=== PATIENT | male | born 1975 | race Asian ===

== ENCOUNTER → 2024-05-02 | Outpatient (CLI) | payer BC, SELFPAY ==
[2024-05-02 09:12] LABS: Glucose Estimated Average 120 mg/dL (80-131); Hemoglobin A1C 5.8 % Hgb (4.8-6.0)
[2024-05-02 09:34] LABS: Alanine Aminotransferase 52 U/L (10-49); Albumin, Serum 4.8 gm/dL (3.5-5.0); Albumin/Globulin Ratio 1.7 (1.2-2.2); Alkaline Phosphatase 64 U/L (46-116); Anion Gap 8 (7-16); Aspartate Amino Transferase 31 U/L (0-34); BUN/Creatinine Ratio 12 Ratio (12-20); Bilirubin,Total 0.9 mg/dL (0.3-1.2); Blood Urea Nitrogen 13 mg/dL (9-23); Calcium 9.8 mg/dL (8.3-10.6); Calcium (Corrected) 9.8 mg/dL (8.5-10.1); Carbon Dioxide 29.4 mMol/L (20.0-31.0); Cardiac Risk Estimate 2.8 RATIO (4.0-6.7); Chloride 101 mMol/L (98-107); Cholesterol 158 mg/dL (132-200); Creatinine (Component) 1.1 mg/dL (0.6-1.3); Globulin 2.8 gm/dL (2.3-3.5); Glucose 98 mg/dL (74-106); HDL Cholesterol 56 mg/dL (40-60); LDL Cholesterol,Calculated 85 mg/dL (0-130); Osmolality,Calculated 275 (275-295); Potassium 4.5 mMol/L (3.4-5.1); Sodium 138 mMol/L (136-145); Total Protein 7.6 gm/dL (5.7-8.2); Triglycerides 87 mg/dL (30-150); eGFR > 60 See Note
== END | disposition home or self-care (01) ==
LOC: COPL 07:44
PROVIDERS: PCP Internal Medicine; Referring Provider Internal Medicine; Visit Provider Internal Medicine
DX: E78.5 Hyperlipidemia, unspecified (principal); R73.03 Prediabetes
CPT/HCPCS: 36415; 80053; 80061; 83036

== ENCOUNTER 2024-08-06 08:14 | Emergency (ER) | payer BC, SELFPAY ==
[2024-08-06 08:23] VITALS: BP 153/91; PULSE 70; RESP 16; TEMP 36.8; O2SAT 96; BMI 28.7
--- NOTE | 2024-08-06 08:23 | EKG_ITS ---
[facility] Test Date: 2024-08-06 Pat Name: JERRY TOLENTINO Department: Room: - Gender: Male Paver: : 1975 Requested By: Adam Wood (MIN) Order Number: [id number] Reading MD: Adam Wood (LIGHT RAIL TRAIN OPERATOR) Measurements Intervals [place] Rate: 80 P: 63 DC: 166 QRS: 56 QRSD: 106 T: 38 QT: 364 QTc: 422 Interpretive Statements SINUS RHYTHM NONSPECIFIC T-WAVE ABNORMALITY Compared to ECG 08/03/2022 09:39:12 T-wave abnormality now present /store/S0/[id number].pdf
--- NOTE | 2024-08-06 08:25 | PD.EDRME ---
Rapid Medical Screening Exam RME Arrival date/time: 08/06/24 08:14 48-year-old male presents to the emergency department complaints of dizziness and headache Chief Complaint: Dizziness Vital signs: Vital Signs Temperature 98.2 F 08/06/24 08:23 Pulse Rate 70 08/06/24 08:23 Respiratory Rate 16 08/06/24 08:23 Blood Pressure 153/91 H 08/06/24 08:23 Pulse Oximetry (%) 96 08/06/24 08:23 Oxygen Delivery Method Room Air 08/06/24 08:23
[2024-08-06] MEDS: MECLIZINE HCL 25 MG TABLET 50 MG PO ×2 (08:36→14:18)
[2024-08-06] MEDS: METOCLOPRAMIDE INJ 5 MG/ML VIAL 2 ML 10 MG IM (08:43)
[2024-08-06 09:21] LABS: Basophils % (Auto) 0 % (0-2.5); Eosinophils % (Auto) 0 % (0-10); Hemoglobin 15.6 g/dL (13.5-16.0); Immature Granulocytes % (Auto) 0 % (0-0); Immature Granulocytes Auto 0.03 Thou/mm3 (0.00-0.00); Lymphocytes # (Auto) 1.9 Thou/mm3 (1.0-4.8); Lymphocytes % (Auto) 17 % (10-50); Mean Corpuscular HGB Conc 33.9 g/dl (31.0-37.0); Mean Corpuscular Hemoglobin 30.4 pg (25.0-35.0); Mean Corpuscular Volume 90 fL (80-100); Monocytes # (Auto) 0.9 Thou/mm3 (0.0-0.8); Monocytes % (Auto) 8 % (0-12); Neutrophils # (Auto) 8.2 Thou/mm3 (1.8-7.7); Neutrophils % (Auto) 74 % (37-80); Nucleated Red Blood Cell % 0 /100 WBC (0); Platelet Count 297 Thou/mm3 (140-440); RDW Standard Deviation 40.2 fL (35.1-43.9); Red Blood Count 5.14 Miln/mm3 (4.50-5.90)
[2024-08-06 09:27] LABS: Partial Thromboplastin Time 25.7 Seconds (22.0-36.0); Prothrombin Time 11.1 Seconds (9.0-12.2)
[2024-08-06 09:32] LABS: Alanine Aminotransferase 39 U/L (10-49); Albumin, Serum 4.9 gm/dL (3.5-5.0); Albumin/Globulin Ratio 1.5 (1.2-2.2); Alkaline Phosphatase 68 U/L (46-116); Anion Gap 9 (7-16); Aspartate Amino Transferase 16 U/L (0-34); BUN/Creatinine Ratio 16 Ratio (12-20); Bilirubin,Total 1.1 mg/dL (0.3-1.2); Blood Urea Nitrogen 19 mg/dL (9-23); Calcium 9.8 mg/dL (8.3-10.6); Calcium (Corrected) 9.8 mg/dL (8.5-10.1); Carbon Dioxide 28.2 mMol/L (20.0-31.0); Chloride 103 mMol/L (98-107); Creatinine (Component) 1.2 mg/dL (0.6-1.3); Estimated Creatinine Clearance 68.6 mL/min (>60); Globulin 3.3 gm/dL (2.3-3.5); Glucose 134 mg/dL (74-106); Magnesium 2.3 mg/dL (1.6-2.6); Osmolality,Calculated 283 (275-295); Potassium 3.9 mMol/L (3.4-5.1); Sodium 140 mMol/L (136-145); Total Protein 8.2 gm/dL (5.7-8.2); Troponin I < 0.020 ng/mL (0.0-0.045); eGFR > 60 See Note
[2024-08-06 09:43] LABS: Collection Type, Urine Clean Catch; Squamous Epithelial Cell,Urine 0 /hpf (0-5)
--- NOTE | 2024-08-06 09:44 | XR_ITS ---
EXAMINATION: CT head/brain wo con ORDERING PROVIDER: Adam STALLINGS), FORM SETTER HELPER HISTORY: dizziness TECHNIQUE: CT scanner was used in the volumetric, helical non-contrast acquisition of the head with 2-D and 3-D reformats. Institutional dose reducing protocols were utilized. RADIATION DOSE: DLP 1005.25 mGy-cm COMPARISON: None. FINDINGS: BRAIN: No acute intracranial hemorrhage, mass effect, or midline shift. Partially empty sella. VELÁSQUEZ-WHITE DIFFERENTIATION: Preserved. EXTRA-AXIAL SPACES: No abnormal collection. SULCI: Normal. VENTRICLES: Normal. BASAL CISTERNS: Normal. VESSELS: No hyperdense vessel sign. DURAL VENOUS SINUSES: Symmetric attenuation. POSTERIOR FOSSA: Normal. MASTOID AIR CELLS: Clear. PARANASAL SINUSES: Clear. Left supraorbital air cell. ORBITS: Normal. BONES: Normal. SCALP: Normal. IMPRESSION: No acute intracranial findings.
[2024-08-06 09:48] LABS: Bilirubin,Urine Negative (Negative); Blood,Urine Negative (Negative); Clarity,Urine Clear (Clear/Hazy); Color,Urine Yellow (Lt Yel-Yel); Glucose, Urine Negative (Negative); Hyaline Casts,Urine < 1 /hpf (0-1); Ketones,Urine Negative (Negative); Leukocyte Esterase,Urine Negative (Negative); Nitrite,Urine Negative (Negative); Protein,Urine 1+ (Neg - Trace); RBC,Urine 1 /hpf (0-3); Specific Gravity,Urine 1.035 (1.001-1.035); Urobilinogen,Urine Negative mg/dL (0.0-1.0); WBC,Urine 1 /hpf (0-5)
[2024-08-06 09:57] LABS: Amphetamine/Methamp Scrn,U Negative (Negative); Barbiturate Screen,Urine Negative (Negative); Benzodiazepines Screen,Urine Negative (Negative); Benzoylecgonine Screen, Ur Negative (Negative); Fentanyl Screen,Urine Negative (Negative); Opiate Screen,Urine Negative (Negative); THC Screen,Urine Negative (Negative)
[2024-08-06 09:58] LABS: B-Type Natriuretic Peptide < 20 pg/mL (0-100)
[2024-08-06 11:15] VITALS: BP 118/77; PULSE 71; RESP 16; TEMP 36.8; O2SAT 98
[2024-08-06 13:29] VITALS: BP 135/75; PULSE 74; RESP 16; TEMP 36.7; O2SAT 98
--- NOTE | 2024-08-06 13:54 | EDNOTE_ITS ---
ED Dizzyness RME/HPI General Chief Complaint: Dizziness Stated Complaint: ROOM SPINNING DOUBLE VISION; VOMITING X YESTERDAY Time Seen by Provider: 08/06/24 13:52 Arrival date/time: 08/06/24 08:14 This is a 48-year-old male that comes to the emergency room with complaints of dizziness that started yesterday. Patient states that he feels like the world is spinning. Patient reports history of hyperlipidemia. Patient denies any other symptoms. RME / HPI RME / HPI Narrative: 08/06/24 08:14 48-year-old male presents to the emergency department complaints of dizziness and headache Related Data Home Medications ?Medication ?Instructions ?Recorded ?Confirmed atorvastatin 20 mg tablet 20 mg PO QDAY 02/17/2402/16 Previous Rx's ?Medication ?Instructions ?Recorded meclizine 50 mg tablet 50 mg PO BID PRN dizziness # 14 tabs 08/06/24 ondansetron 4 mg disintegrating 4 mg PO Q6H PRN nausea and 08/06/24 tablet vomiting #14 tabs Allergies Allergy/AdvReac Type Severity Reaction Status Date / Time No Known Allergies Allergy Verified 08/06/24 08:17 Review of Systems Review of Systems Systems Reviewed: All systems reviewed, normal except as documented Past Medical History Past Medical History Comments PMH COMMENT: see hpi ED Exam General General appearance: Present alert and in no apparent distress Head Head exam: Present atraumatic Eye Eye exam: Present normal appearance, PERRL and EOMI ENT ENT exam: Present normal exam, normal oropharynx and mucous membranes moist Neck Neck exam: Present normal inspection, full ROM and trachea midline Chest Chest inspection: Present normal inspection and symmetric chest wall rise Respiratory Respiratory exam: Present normal lung sounds bilaterally Cardiovascular Cardiovascular exam: Present regular rate and normal rhythm Abdominal Exam Abdominal exam: Present soft Extremities Exam Extremities exam: Present normal inspection and full ROM Back Exam Back exam: Present normal inspection and full ROM Neurological Exam Neurological exam: Present alert, oriented X3 and CN II-XII intact Psychiatric Psychiatric exam: Present normal affect and normal mood Skin Skin exam: Present warm, dry, intact and normal color Course Quality Measures none Orders Category Date Time Status EKG (ED ONLY) *Do not use* NOW Care 08/06/24 08:[address] head/brain wo con Stat Exams 08/06/24 09:44 Completed EKG (ED Only) Stat Exams 08/06/24 08:23 Draft B-Type Natriuretic Peptide Stat Lab 08/06/24 08:35 Completed CBC Stat Lab 08/06/24 08:35 Completed Comprehensive Metabolic Panel Stat Lab 08/06/24 08:35 Completed Drug Screen,Urine Stat Lab 08/06/24 09:00 Completed Magnesium Stat Lab 08/06/24 08:35 Completed Partial Thromboplastin Time Stat Lab 08/06/24 08:35 Completed Prothrombin Time with INR Stat Lab 08/06/24 08:35 Completed Troponin I Stat Lab 08/06/24 08:35 Completed Urinalysis Stat Lab 08/06/24 09:00 Completed Meclizine HCl [Antivert] Med 08/06/24 08:22 Discontinued 50 mg PO X1 ONE Meclizine HCl [Antivert] Med 08/06/24 14:05 Discontinued 50 mg PO X1 ONE Metoclopramide Inj [Reglan Inj] Med 08/06/24 08:45 Discontinued 10 mg IM X1 ONE Vital Signs Vital signs: Vital Signs Temperature 98.2 F 08/06/24 08:23 Pulse Rate 70 08/06/24 08:23 Respiratory Rate 16 08/06/24 08:23 Blood Pressure 153/91 H 08/06/24 08:23 Pulse Oximetry (%) 96 08/06/24 08:23 Oxygen Delivery Method Room Air 08/06/24 08:23 Procedures -ED EKG Interpretation #1: Date of EK08/06/24 Time of EK:27 Rate: 80 Interpretation: Interpreted by me (sinus rhythm no specificc t wave abnormality ) EKG Impression: No ectopy, Normal QRS and Normal intervals Dizziness MDM Narrative MDM Narrative:: FINDINGS: BRAIN: No acute intracranial hemorrhage, mass effect, or midline shift. Partially empty sella. VELÁSQUEZ-WHITE DIFFERENTIATION: Preserved. EXTRA-AXIAL SPACES: No abnormal collection. SULCI: Normal. VENTRICLES: Normal. BASAL CISTERNS: Normal. VESSELS: No hyperdense vessel sign. DURAL VENOUS SINUSES: Symmetric attenuation. POSTERIOR FOSSA: Normal. MASTOID AIR CELLS: Clear. PARANASAL SINUSES: Clear. Left supraorbital air cell. ORBITS: Normal. BONES: Normal. SCALP: Normal. IMPRESSION: No acute intracranial findings. Patient has had this problem before. Patient was given a dose of Reglan and also meclizine. Patient does feel better. Urine looks unremarkable U tox urine looks unremarkable. Patient feels comfortable going home at this time. Patient states most of his symptoms have resolved. Will send patient home with mecaretha and Maralfran. Patient reports that he will follow-up with primary provider in 1 to 2 days. Come back to the emergency room if symptoms change or worsen. Patient data External records reviewed:: [facility] previous records Clinical information provided by:: patient Social determinants that could affect healthcare access:: none Patient has the following chronic illnesses:: hyperlipidemia How is presenting disease/condition affected by chronic disease/condition?: no chronic disease Evaluation data The following diagnostics were reviewed and interpreted by me:: lab results, radiology exam(s) and EKG tracing(s) Lab and/or radiology exams considered but not ordered:: none Interpretation Summary: see note Medications / Prescriptions Medications or Prescriptions considered but not ordered:: none Medication administrations:: Medication Administration History Discontinued Medications Meclizine HCl (Meclizine Hcl 25 Mg Tablet) 50 mg PO X1 ONE Stop: 08/06/24 08:23 Last Admin: 08/06/24 08:36 Dose: 50 mg Documented By: ANA Meclizine HCl (Meclizine Hcl 25 Mg Tablet) 50 mg PO X1 ONE Stop: 08/06/24 14:06 Last Admin: 08/06/24 14:18 Dose: 50 mg Documented By: PRISCILA Metoclopramide HCl (Metoclopramide Inj 5 Mg/Ml Vial 2 Ml) 10 mg IM X1 ONE; Protocol Stop: 08/06/24 08:46 Last Admin: 08/06/24 08:43 Dose: 10 mg Documented By: ANA see [facility] Consultations Consultation(s) initiated? (list below): No Diagnosis Most likely diagnosis given after review of the tests above:: dizziness Admission Indicated Admission indicated?: not indicated Admission Request Was there a request for admission?: No Disposition Plan Disposition Plan: Discharge Discharge Attestation Discharge Attestation: The patient and all family members were given an opportunity to ask questions and understood the discharge instructions. Discharge instructions specifically effects, indications for sooner follow up or return to the emergency department, and the expected course of current diagnosis. Patient condition: Stable Discharge Plan Plan Patient Disposition: HOME (Self Care) Patient condition on transfer: Stable Prescriptions/Referrals Prescriptions/Med Rec: New meclizine 50 mg tablet 50 mg PO BID PRN (Reason: dizziness) Qty: 14 0RF ondansetron 4 mg tablet,disintegrating 4 mg PO Q6H PRN (Reason: nausea and vomiting) Qty: 14 0RF No Action atorvastatin 20 mg tablet 20 mg PO QDAY Patient Comments: TAKE 1 TABLET BY MOUTH EVERYDAY AT BEDTIME Referrals: Cullen Amanda MD [Primary Care Provider] - In 1 week Problem List Clinical Impression: Dizziness Patient/Caregiver Discharge Instructions Discharge Activity: activity as tolerated Education Materials: ED Dizziness, Uncertain Cause Additional Instructions: Follow up with primary provider in 1-2 days. Come back to ED if symptoms change or worsen Print Language: Chadian Stand Alone Forms: Jessica Award Info., Work/School Release, Patient Portal Info Letter PA/GREIGE GOODS MARKER Supervising Physician PA/GREIGE GOODS MARKER Supervising Physician: lorenzo
== END 2024-08-06 15:01 | disposition home or self-care (01) ==
PROVIDERS: Nurse Practitioner Primary Care; Emergency Provider Emergency Medicine; PCP Internal Medicine
DX: R42 Dizziness and giddiness (principal); E78.5 Hyperlipidemia, unspecified
CPT/HCPCS: 36415; 70450; 80053; 80307; 81001; 83735; 83880; 84484; 85025; 85610; 85730; 93005; 96372; 99284; J2765; A9270

== ENCOUNTER 2024-11-10 13:28 | Outpatient (AMB) | payer BC, SELFPAY ==
[2024-11-10 13:39] VITALS: BP 126/79; PULSE 85; RESP 18; TEMP 36.6; O2SAT 97; BMI 29.4
--- NOTE | 2024-11-10 13:39 | PD.GSCLVISIT ---
Vital Signs - [facility] 11/10/24 13:39 Height 1.63 m Height Method Stated Weight 78.216 kg Weight Measurement Method Standing Scale BMI 29.4 BP 126/79 Blood Pressure Source Automatic Cuff Blood Pressure Location Left Upper Arm Position Sitting Respiration 18 Pulse 85 Pulse Source Monitor Temp 97.9 F Temp Source Temporal Artery Scan Pulse Oximetry (%) 97 Oxygen Delivery Method Room Air Med/Allergies Allergies & Medications Allergies No Known Allergies Allergy (Verified 11/10/24 13:40) Medication Reconciliation atorvastatin 20 mg tablet 20 mg PO QDAY 02/17/24 [History Confirmed 11/10/24] meclizine 50 mg tablet 50 mg PO BID PRN dizziness #14 tabs 08/06/24 [Rx Confirmed 11/10/24] ondansetron 4 mg disintegrating tablet 4 mg PO Q6H PRN nausea and vomiting #14 tabs 08/06/24 [Rx Confirmed 11/10/24] amoxicillin 500 mg-potassium clavulanate 125 mg tablet 1 tab PO BID #10 tabs 11/10/24 [Rx] MA Intake Visit Data Collection New Patient or Established: Established Patient (seen at [facility] within 3 years) Seen by Clinical Staff ONLY (RN/MA): No Reason for Visit:: ANAL FISSURE Pain Present Currently: Yes Pain Location: Unable to identify Pain scale:: 7 PCP or OBGYN visit in last 3 months: Yes Hx Now: No Do You Feel Safe at Home: Yes Authorities Contacted: N/A Smoking Status Smoking Status: Never smoker Immunization / Flu Flu Vaccine in the Last 12 Months: No Flu Vaccine Exclusion Criteria: No Exclusion Criteria Past Medical History Past Medical History NEUROLOGIC: Negative Neurological Disorders or Seizures CARDIAC: Positive Cardiac Disorders and Hypercholesterolemia; Negative Congestive Heart Failure RESPIRATORY: Negative Chronic Obstructive Pulmonary Disease (COPD) GASTROINTESTINAL: Positive Gastrointestinal Disorders and Gall Bladder Disease (gallstones) GENITOURINARY: Negative Genitourinary Disorders or Renal Disease REPRODUCTIVE: Negative Fibroids ENDOCRINE: Negative Endocrine Disorders, Diabetes Mellitus Type 1 or Diabetes Mellitus Type 2 HEMATOLOGIC: Negative Blood Disorders OTHER HISTORY: Negative Hospitalization, Autoimmune Disease, Falls, Blood Transfusions, Anesthesia Reactions, MRSA, Chicken Pox, Measles, Mumps, Cancer or Cervical Cancer Family History FAMILY HISTORY: Negative Family Psychiatric Problems, Family Respiratory Disorders, Family Cardiac Disorders, Family Gastrointestinal Problems, Family Cancer, Family Surgery or Family Anesthesia Reaction Social History SMOKING STATUS: Smoking status: Never smoker ALCOHOL: Alcohol Intake: Never HOUSING: Housing: House HPI HPI Narrative 49M referred for perianal pain. Pt reports pain began suddenly 2 weeks ago, with no clear inciting factor, and is severe especially when he is sitting down. Pt states his BMs are soft without any straining or diarrhea, and the pain worsens after defecation. He denies history of similar symptoms. Pt has been taking motrin which provides some relief, and he uses sitz baths regularly. He was prescribed lidocaine cream yesterday which also helps somewhat. Additionally pt has noted minimal purulent drainage and a raised area adjacent to the anus. He denies any abdominal pain, changes in appetite or stool caliber Pt had a colonoscopy last year and had one hyperplastic polyp PMH: HLD PSHx: Cholecystectomy Meds: Atorvastatin, meclizine Allergies: NKDA Social hx: Nonsmoker Family hx: No known malignancies Objective/Exam General General Appearance: alert, cooperative and well groomed Resp Respiratory exam: Absent respiratory distress Rectal Rectal exam: Present other (pt had difficulty relaxing due to pain, unable to assess the anus well enough to see a fissure but he seems to have a sentinel pile at the anterior midline which is exquisitely tender and erythematous) Assessment & Plan Diagnosis / Problem List (1) Anal fissure: Status: Acute Assessment & Plan: 49M with HLD presenting with signs and symptoms of an anal fissure, with a sentinel pile on exam that appears infected. I recommended pt to continue sitz baths and maximizing his bowel regimen, and will prescribe a short course of oral antibiotics. I also attempted to prescribe compound cream but was advised by the pharmacist that pt already received compound cream 2 days ago. I will follow up in 4 weeks but pt is encouraged to reach out in the meantime with questions or concerns Office Procedures GNS Level of Care Nursing/Assessment Patient Status: Established Patient Nursing Assessment/Reassesment: Medication Reconciliation, Update PMH in EMR and Vital Signs Coordination of Care: Complex Care and Chronic Disease 1-5, Education Complex Pt/Fam, Consent,records obtained, informed consent, Results/Orders obtained and Staff clarify orders Established Patient Charge Established Patient Point Assignment: 95 Established Patient Point Charge: EP Level 3 (80-115) Patient Portal Questionaires Social History Living Situation History Housing: House Tobacco History Smoking Status: Never smoker Alcohol History Alcohol Intake: Never Domestic Abuse History Do You Feel Safe at Home: Yes Review of Systems Report any current symptoms Only answer those that you have currently: Past Medical History Past Medical History Have you ever been diagnosed with any of the following: Neurological Problems Seizures: No Cardiology Problems Hypercholesterolemia: Yes Congestive Heart Failure: No Respiratory Problems Chronic Obstructive Pulmonary Disease (COPD): No Stomache/Intestinal Problems Gall Bladder Disease: Yes (gallstones) Genital/Urinary Problems Renal Disease: No Reproductive Problems Fibroids: No Endocrine Problems Diabetes Mellitus Type 1: No Diabetes Mellitus Type 2: No Other Problems Hospitalization: No Autoimmune Disease: No Falls: No Blood Transfusions: No Anesthesia Reactions: No MRSA: No Chicken Pox: No Measles: No Mumps: No Cancer: No
== END 2024-11-10 14:00 | disposition home or self-care (01) ==
LOC: HODSRG 13:28
PROVIDERS: PCP Specialist; Referring Provider Specialist; Supervising Provider Surgery; Visit Provider Surgery
DX: K60.2 Anal fissure, unspecified (principal)
CPT/HCPCS: 99213; G0463

== ENCOUNTER → 2024-11-17 | Outpatient (CLI) | payer BC, SELFPAY ==
[2024-11-17 10:49] LABS: Collection Type, Urine Clean Catch
[2024-11-17 11:21] LABS: Basophils # (Auto) 0.1 Thou/mm3 (0.0-0.2); Basophils % (Auto) 1 % (0-2.5); Eosinophils # (Auto) 0.5 Thou/mm3 (0.0-0.5); Eosinophils % (Auto) 8 % (0-10); Hematocrit 49.1 % (41.0-53.0); Hemoglobin 16.6 g/dL (13.5-16.0); Immature Granulocytes % (Auto) 0 % (0-0); Immature Granulocytes Auto 0.02 Thou/mm3 (0.00-0.00); Lymphocytes # (Auto) 2.2 Thou/mm3 (1.0-4.8); Lymphocytes % (Auto) 37 % (10-50); Mean Corpuscular HGB Conc 33.8 g/dl (31.0-37.0); Mean Corpuscular Hemoglobin 30.8 pg (25.0-35.0); Mean Corpuscular Volume 91 fL (80-100); Monocytes # (Auto) 0.5 Thou/mm3 (0.0-0.8); Monocytes % (Auto) 8 % (0-12); Neutrophils # (Auto) 2.7 Thou/mm3 (1.8-7.7); Neutrophils % (Auto) 45 % (37-80); Nucleated Red Blood Cell % 0 /100 WBC (0); Platelet Count 334 Thou/mm3 (140-440); RDW Standard Deviation 40.6 fL (35.1-43.9); Red Blood Count 5.39 Miln/mm3 (4.50-5.90); White Blood Count 5.9 Thou/mm3 (3.8-10.6)
[2024-11-17 11:31] LABS: Glucose Estimated Average 120 mg/dL (80-131); Hemoglobin A1C 5.8 % Hgb (4.8-6.0)
[2024-11-17 11:35] LABS: Bilirubin,Urine Negative (Negative); Blood,Urine Negative (Negative); Clarity,Urine Clear (Clear/Hazy); Color,Urine Yellow (Lt Yel-Yel); Glucose, Urine Negative (Negative); Ketones,Urine Negative (Negative); Leukocyte Esterase,Urine Negative (Negative); Nitrite,Urine Negative (Negative); Protein,Urine Trace (Neg - Trace); RBC,Urine 3 /hpf (0-3); Specific Gravity,Urine 1.029 (1.001-1.035); Squamous Epithelial Cell,Urine < 1 /hpf (0-5); Urobilinogen,Urine Negative mg/dL (0.0-1.0); WBC,Urine 1 /hpf (0-5)
[2024-11-17 11:38] LABS: Prostate Specific Antigen 0.85 ng/mL (0-4.00)
[2024-11-17 11:42] LABS: Vitamin B12 1055 pg/mL (211-911); Vitamin D 25 Hydroxy Total 46.2 ng/mL (7.3-40.2)
[2024-11-17 11:46] LABS: Alanine Aminotransferase 44 U/L (10-49); Albumin, Serum 4.9 gm/dL (3.5-5.0); Albumin/Globulin Ratio 1.6 (1.2-2.2); Alkaline Phosphatase 74 U/L (46-116); Anion Gap 7 (7-16); Aspartate Amino Transferase 28 U/L (0-34); BUN/Creatinine Ratio 12 Ratio (12-20); Bilirubin,Total 0.9 mg/dL (0.3-1.2); Blood Urea Nitrogen 14 mg/dL (9-23); Calcium 9.8 mg/dL (8.3-10.6); Calcium (Corrected) 9.8 mg/dL (8.5-10.1); Carbon Dioxide 30.2 mMol/L (20.0-31.0); Cardiac Risk Estimate 2.6 RATIO (4.0-6.7); Chloride 103 mMol/L (98-107); Cholesterol 143 mg/dL (132-200); Creatinine (Component) 1.2 mg/dL (0.6-1.3); Glucose 105 mg/dL (74-106); HDL Cholesterol 54 mg/dL (40-60); LDL Cholesterol,Calculated 70 mg/dL (0-130); Osmolality,Calculated 279 (275-295); Potassium 4.4 mMol/L (3.4-5.1); Sodium 140 mMol/L (136-145); Thyroid Stimulating Hormone 0.91 uIU/mL (0.55-4.78); Total Protein 7.9 gm/dL (5.7-8.2); Triglycerides 93 mg/dL (30-150); Uric Acid 8.1 mg/dL (3.7-9.2); eGFR > 60 See Note
== END | disposition home or self-care (01) ==
LOC: COPL 10:20
PROVIDERS: PCP Internal Medicine; Referring Provider Internal Medicine; Visit Provider Internal Medicine
DX: Z00.00 Encounter for general adult medical examination without abnormal findings (principal); E78.5 Hyperlipidemia, unspecified; R73.03 Prediabetes
CPT/HCPCS: 36415; 80053; 80061; 81001; 82306; 82607; 83036; 84153; 84443; 84550; 85025

== ENCOUNTER 2024-12-18 09:10 | Outpatient (AMB) | payer BC, SELFPAY ==
[2024-12-18 09:17] VITALS: BP 134/74; PULSE 76; RESP 18; TEMP 36.3; BMI 29.3
--- NOTE | 2024-12-18 09:17 | GSCOFFNT_ITS ---
Vital Signs - [facility] 12/18/24 09:17 Height 1.63 m Height Method Stated Weight 78.046 kg Weight Measurement Method Standing Scale BMI 29.3 BP 134/74 H Blood Pressure Source Automatic Cuff Blood Pressure Location Right Upper Arm Position Sitting Respiration 18 Pulse 76 Pulse Source Monitor Temp 97.4 F Temp Source Temporal Artery Scan Med/Allergies Allergies & Medications Allergies No Known Allergies Allergy (Verified 11/10/24 13:40) NH Intake Visit Data Collection New Patient or Established: Established Patient (seen at [facility] within 3 years) Reason for Visit:: F/U ANAL FISTULA Pain Present Currently: No Pain scale:: 0 Pain Scale Used: Crane-Roman/Numerical Staff Electrical Engineer Required: No PCP or OBGYN visit in last 3 months: Yes Hx Now: No Do You Feel Safe at Home: Yes Authorities Contacted: N/A Smoking Status Smoking Status: Never smoker Immunization / Flu Flu Vaccine in the Last 12 Months: No Flu Vaccine Exclusion Criteria: No Exclusion Criteria Past Medical History Past Medical History NEUROLOGIC: Negative Neurological Disorders or Seizures CARDIAC: Positive Cardiac Disorders and Hypercholesterolemia; Negative Congestive Heart Failure RESPIRATORY: Negative Chronic Obstructive Pulmonary Disease (COPD) GASTROINTESTINAL: Positive Gastrointestinal Disorders and Gall Bladder Disease (gallstones) GENITOURINARY: Negative Genitourinary Disorders or Renal Disease REPRODUCTIVE: Negative Fibroids MUSCULOSKELETAL: Negative Musculoskeletal Disorders ENDOCRINE: Negative Endocrine Disorders, Diabetes Mellitus Type 1 or Diabetes Mellitus Type 2 HEMATOLOGIC: Negative Blood Disorders OTHER HISTORY: Negative Hospitalization, Autoimmune Disease, Falls, Blood Transfusions, Anesthesia Reactions, MRSA, Chicken Pox, Measles, Mumps, Cancer or Cervical Cancer Family History FAMILY HISTORY: Negative Family Psychiatric Problems, Family Respiratory Disorders, Family Cardiac Disorders, Family Gastrointestinal Problems, Family Cancer, Family Surgery or Family Anesthesia Reaction Social History SMOKING STATUS: Smoking status: Never smoker ALCOHOL: Alcohol Intake: Never HOUSING: Housing: House Travel Risk Travel Hx Recent Travel: No HPI HPI Narrative 49M here for follow up of infected sentinel pile. Pt reports he feels much better, his pain has greatly improved and he completed his course of antibiotics but he does notice scant purulent drainage when he wipes on sometimes in his undergarments. His BMs remain soft and regular without any straining ROS Review of Systems Systems Reviewed: All systems reviewed, normal except as documented Objective/Exam General General Appearance: alert, cooperative and well groomed Resp Respiratory exam: Absent respiratory distress Rectal Rectal exam: Present other (no fissure on today's exam, there is a punctate opening at the right anterior anus with minimal purulent drainage to which I applied silver nitrate today) Assessment & Plan Diagnosis / Problem List (1) Anal fissure: Status: Acute Assessment & Plan: 49M referred for perianal pain, findings of infected sentinel pile which has now resolved, with a very tiny external opening at the right anterior anus possibly representing a fistula. As his drainage is so minimal I recommended silver nitrate application and explained that this can be repeated as often as every two weeks, but that if symptoms progress he may require surgical intervention. Pt expressed understanding and is agreeable with this plan Plan: F/u in 4 weeks Orders: Orders Silver nitrate applicator topical stick Today Office Procedures GNS Level of Care Nursing/Assessment Patient Status: Established Patient Nursing Assessment/Reassesment: Medication Reconciliation, Update PMH in EMR and Vital Signs Coordination of Care: Complex Care and Chronic Disease 1-5, Education Complex Pt/Fam, Consent,records obtained, informed consent, Results/Orders obtained and Staff clarify orders Established Patient Charge Established Patient Point Assignment: 95 Established Patient Point Charge: EP Level 3 (80-115) Medication Given Medication Given Medication Given: Yes Documented Dose Given: 1 Route: TOPICAL Office Meds silver nitrate applicators 75 %-25 % topical stick Performing Provider: Ramona Lechuga MD Performing Location: [facility] Administered by: Ramona Lechuga MD on 12/18/24 09:32 Dose Route Admin Location Dispensed Lot Number Expiration Date [facility] [employer] 1 ea topical TOPICAL 2 ea [id number] 12/15/26 Patient Portal Questionaires Social History Living Situation History Housing: House Tobacco History Smoking Status: Never smoker Alcohol History Alcohol Intake: Never Domestic Abuse History Do You Feel Safe at Home: Yes Review of Systems Report any current symptoms Only answer those that you have currently: Past Medical History Past Medical History Have you ever been diagnosed with any of the following: Neurological Problems Seizures: No Cardiology Problems Hypercholesterolemia: Yes Congestive Heart Failure: No Respiratory Problems Chronic Obstructive Pulmonary Disease (COPD): No Stomache/Intestinal Problems Gall Bladder Disease: Yes (gallstones) Genital/Urinary Problems Renal Disease: No Reproductive Problems Fibroids: No Endocrine Problems Diabetes Mellitus Type 1: No Diabetes Mellitus Type 2: No Other Problems Hospitalization: No Autoimmune Disease: No Falls: No Blood Transfusions: No Anesthesia Reactions: No MRSA: No Chicken Pox: No Measles: No Mumps: No Cancer: No
== END 2024-12-18 09:35 | disposition home or self-care (01) ==
LOC: HODSRG 09:10
PROVIDERS: PCP Specialist; Referring Provider Specialist; Supervising Provider Surgery; Visit Provider Surgery
DX: K60.2 Anal fissure, unspecified (principal)
CPT/HCPCS: 17250; 99213; A9270; G0463

== ENCOUNTER → 2025-03-02 | Outpatient (CLI) | payer BC, SELFPAY ==
--- NOTE | 2025-03-02 | XR_ITS ---
Examination: Lumbar spine, 5 views Technique: Lumbar spine AP, lateral, coned lateral lower lumbar spine, bilateral obliques 5 views Exam date and time: March 02, 2025, 1210 hours INDICATIONS: Low back pain beginning one month ago. FINDINGS: Adequate alignment lumbar vertebral bodies Grade 1 anterolisthesis L5 on L4 Mild diffuse lumbar disc narrowing Mild lumbar spondylosis IMPRESSION: Mild diffuse lumbar degenerative disc disease
== END | disposition home or self-care (01) ==
LOC: CDIM 11:52
PROVIDERS: PCP Internal Medicine; Referring Provider Internal Medicine; Visit Provider Internal Medicine
DX: M51.369 Other intervertebral disc degeneration, lumbar region without mention of lumbar back pain or lower extremity pain (principal)
CPT/HCPCS: 72110

== ENCOUNTER 2025-03-05 09:59 | Outpatient (AMB) | payer BC, SELFPAY ==
--- NOTE | 2025-03-05 10:00 | GSCOFFNT_ITS ---
[facility] - [facility] 03/05/25 10:06 Height 1.63 m Height Method Measured Weight 79.152 kg Weight Measurement Method Standing Scale BMI 29.7 BP 147/80 H Blood Pressure Source Automatic Cuff Blood Pressure Location Left Upper Arm Position Sitting Respiration 18 Pulse 86 Pulse Source Monitor Temp 97.4 F Temp Source Temporal Artery Scan Pulse Oximetry (%) 96 Oxygen Delivery Method Room Air Med/Allergies Allergies & Medications Allergies No Known Allergies Allergy (Verified 03/05/25 10:06) Medication Reconciliation atorvastatin 20 mg tablet 20 mg PO QDAY 02/17/24 [History Confirmed 03/05/25] meclizine 50 mg tablet 50 mg PO BID PRN dizziness #14 tabs 08/06/24 [Rx Confirmed 03/05/25] ondansetron 4 mg disintegrating tablet 4 mg PO Q6H PRN nausea and vomiting #14 tabs 08/06/24 [Rx Confirmed 03/05/25] amoxicillin 500 mg-potassium clavulanate 125 mg tablet 1 tab PO BID #10 tabs 11/10/24 [Rx Confirmed 03/05/25] MA Intake Visit Data Collection New Patient or Established: Established Patient (seen at [facility] within 3 years) Seen by Clinical Staff ONLY (RN/MA): No Reason for Visit:: F/U ANAL FISTULA Pain Present Currently: No Pain Scale Used: Crane-Roman/Numerical Customs Compliance Specialist Required: No PCP or OBGYN visit in last 3 months: Yes Hx Now: No Do You Feel Safe at Home: Yes Authorities Contacted: N/A Smoking Status Smoking Status: Never smoker Immunization / Flu Flu Vaccine in the Last 12 Months: Yes Flu Vaccine Exclusion Criteria: Already Received Past Medical History Past Medical History NEUROLOGIC: Negative Neurological Disorders or Seizures CARDIAC: Positive Cardiac Disorders and Hypercholesterolemia; Negative Congestive Heart Failure RESPIRATORY: Negative Chronic Obstructive Pulmonary Disease (COPD) GASTROINTESTINAL: Positive Gastrointestinal Disorders and Gall Bladder Disease (gallstones) GENITOURINARY: Negative Genitourinary Disorders or Renal Disease REPRODUCTIVE: Negative Fibroids ENDOCRINE: Negative Endocrine Disorders, Diabetes Mellitus Type 1 or Diabetes Mellitus Type 2 HEMATOLOGIC: Negative Blood Disorders OTHER HISTORY: Negative Hospitalization, Autoimmune Disease, Falls, Blood Transfusions, Anesthesia Reactions, MRSA, Chicken Pox, Measles, Mumps, Cancer or Cervical Cancer Family History FAMILY HISTORY: Negative Family Psychiatric Problems, Family Respiratory Disorders, Family Cardiac Disorders, Family Gastrointestinal Problems, Family Cancer, Family Surgery or Family Anesthesia Reaction Social History SMOKING STATUS: Smoking status: Never smoker ALCOHOL: Alcohol Intake: Never HOUSING: Housing: House HPI HPI Narrative HISTORY OF PRESENT ILLNESS I, Ramona Lechuga, have obtained verbal consent from the patient, to be recorded during this encounter which may include, but not limited to, medical history, examination, treatment plans, and relevant health information.? Patient was informed that recording will be read and reviewed by myself before inclusion in the medical chart. The patient presents for a follow-up of an infected sentinel pile. He reports no current drainage from the perianal area but mentions the onset of a bump and swelling approximately a week ago. He is uncertain if this could be an abscess, as he has not observed any drainage or opening. The discomfort is described as sharp, though less severe than previous episodes. He is not experiencing any feverish symptoms. His bowel movements are regular. He recalls a previous episode of minor drainage, which has since ceased. He occasionally uses sitz baths for relief and believes more frequent use may be beneficial. He also reports recent lower back pain and has undergone an x-ray examination, with results pending. REVIEW OF SYSTEMS Negative for fever. 2. Perianal fistula. History of a perianal fistula but currently reports no significant issues other than the bump. No signs of an active fistula or abscess were observed during the examination. Advised to monitor for any changes and call if symptoms worsen or new symptoms develop. 3. Lower back pain. Mentioned recent lower back pain and had an x-ray done on 03/02/2025. Results are pending. Advised to follow up with the primary care physician regarding the x-ray results and further management of the back pain. The risks, benefits, and alternatives of the recommended treatments were discussed. The patient was informed that there were no signs of an abscess or active fistula, and that sitz baths could help alleviate discomfort. It was explained that no immediate intervention is needed but to monitor for any changes and seek medical advice if symptoms worsen. The patient was also advised to follow up with their primary care physician for the lower back pain and pending x-ray results. ROS Review of Systems Systems Reviewed: All systems reviewed, normal except as documented Objective/Exam General General Appearance: alert, cooperative and well groomed Resp Respiratory exam: Absent respiratory distress Rectal Rectal exam: Present other (no erythema or fluctuance, there is some induration near the left anterior anus but this is nontender with no overlying skin changes) Assessment & Plan Diagnosis / Problem List (1) Anal fissure: Status: Acute Assessment & Plan: Reports a bump and some swelling in the perianal area but no drainage or fever. Physical examination reveals no signs of an abscess, only some firmness, possibly scar tissue. No intervention is needed at this time. Sitz baths are recommended to alleviate discomfort. I offered to schedule follow up if pt preferred but he will reach out if any concerns or new symptoms develop Office Procedures GNS Level of Care Nursing/Assessment Patient Status: Established Patient Nursing Assessment/Reassesment: Medication Reconciliation, Update PMH in EMR and Vital Signs Coordination of Care: Complex Care and Chronic Disease 1-5, Education Complex Pt/Fam, Consent,records obtained, informed consent, Results/Orders obtained and Staff clarify orders Established Patient Charge Established Patient Point Assignment: 95 Established Patient Point Charge: EP Level 3 (80-115) Patient Portal Questionaires Social History Living Situation History Housing: House Tobacco History Smoking Status: Never smoker Alcohol History Alcohol Intake: Never Domestic Abuse History Do You Feel Safe at Home: Yes Review of Systems Report any current symptoms Only answer those that you have currently: Past Medical History Past Medical History Have you ever been diagnosed with any of the following: Neurological Problems Seizures: No Cardiology Problems Hypercholesterolemia: Yes Congestive Heart Failure: No Respiratory Problems Chronic Obstructive Pulmonary Disease (COPD): No Stomache/Intestinal Problems Gall Bladder Disease: Yes (gallstones) Genital/Urinary Problems Renal Disease: No Reproductive Problems Fibroids: No Endocrine Problems Diabetes Mellitus Type 1: No Diabetes Mellitus Type 2: No Other Problems Hospitalization: No Autoimmune Disease: No Falls: No Blood Transfusions: No Anesthesia Reactions: No MRSA: No Chicken Pox: No Measles: No Mumps: No Cancer: No
[2025-03-05 10:06] VITALS: BP 147/80; PULSE 86; RESP 18; TEMP 36.3; O2SAT 96; BMI 29.7
== END 2025-03-05 10:46 | disposition home or self-care (01) ==
LOC: HODSRG 09:59
PROVIDERS: PCP Specialist; Referring Provider Specialist; Supervising Provider Surgery; Visit Provider Surgery
DX: K60.2 Anal fissure, unspecified (principal); M54.50 Low back pain, unspecified
CPT/HCPCS: 99213; G0463

== ENCOUNTER 2025-04-06 13:02 | Outpatient (AMB) | payer BC, SELFPAY ==
[2025-04-06 13:12] VITALS: BP 150/90; PULSE 79; RESP 18; TEMP 36.6; O2SAT 96; BMI 29.9
--- NOTE | 2025-04-06 13:12 | PD.GSCLVISIT ---
Vital Signs - [facility] 04/06/25 13:12 Height 1.63 m Height Method Measured Weight 79.634 kg Weight Measurement Method Standing Scale BMI 29.9 BP 150/90 H Blood Pressure Source Automatic Cuff Blood Pressure Location Left Upper Arm Position Sitting Respiration 18 Pulse 79 Pulse Source Monitor Temp 97.8 F Temp Source Temporal Artery Scan Pulse Oximetry (%) 96 Oxygen Delivery Method Room Air Med/Allergies Allergies & Medications Allergies No Known Allergies Allergy (Verified 04/06/25 13:13) Medication Reconciliation atorvastatin 20 mg tablet 20 mg PO QDAY 02/17/24 [History Confirmed 04/06/25] meclizine 50 mg tablet 50 mg PO BID PRN dizziness #14 tabs 08/06/24 [Rx Confirmed 04/06/25] ondansetron 4 mg disintegrating tablet 4 mg PO Q6H PRN nausea and vomiting #14 tabs 08/06/24 [Rx Confirmed 04/06/25] amoxicillin 500 mg-potassium clavulanate 125 mg tablet 1 tab PO BID #10 tabs 11/10/24 [Rx Confirmed 04/06/25] MA Intake Visit Data Collection New Patient or Established: Established Patient (seen at [facility] within 3 years) Seen by Clinical Staff ONLY (RN/MA): No Reason for Visit:: F/U FISTULA Pain Present Currently: Yes Pain Location: Rectum Pain scale:: 5 Pain Scale Used: Crane-Roman/Numerical Advanced Nursing Professor Required: No PCP or OBGYN visit in last 3 months: Yes Hx Now: No Do You Feel Safe at Home: Yes Authorities Contacted: N/A Smoking Status Smoking Status: Never smoker Immunization / Flu Flu Vaccine in the Last 12 Months: Yes Flu Vaccine Exclusion Criteria: Already Received Past Medical History Past Medical History NEUROLOGIC: Negative Neurological Disorders or Seizures CARDIAC: Positive Cardiac Disorders and Hypercholesterolemia; Negative Congestive Heart Failure RESPIRATORY: Negative Chronic Obstructive Pulmonary Disease (COPD) GASTROINTESTINAL: Positive Gastrointestinal Disorders and Gall Bladder Disease (gallstones) GENITOURINARY: Negative Genitourinary Disorders or Renal Disease REPRODUCTIVE: Negative Fibroids ENDOCRINE: Negative Endocrine Disorders, Diabetes Mellitus Type 1 or Diabetes Mellitus Type 2 HEMATOLOGIC: Negative Blood Disorders OTHER HISTORY: Negative Hospitalization, Autoimmune Disease, Falls, Blood Transfusions, Anesthesia Reactions, MRSA, Chicken Pox, Measles, Mumps, Cancer or Cervical Cancer Family History FAMILY HISTORY: Negative Family Psychiatric Problems, Family Respiratory Disorders, Family Cardiac Disorders, Family Gastrointestinal Problems, Family Cancer, Family Surgery or Family Anesthesia Reaction Social History SMOKING STATUS: Smoking status: Never smoker ALCOHOL: Alcohol Intake: Never HOUSING: Housing: House HPI HPI Narrative Chema Guerra is a 49 yo male presenting to the clinic for a perianal mass and drainage for the past few weeks. The mass appeared about a week after his last visit and purulent drainage with some blood from the anus began shortly after that, then finally a perianal opening. His pain level is currently at 5/10. He has attempted symptomatic treatment of ibuprofen 600 mg for the pain PRN and sitz baths which have helped. He notes that his PCP offered [place] as well but he is reluctant to take [place] due to the possibility for constipation. He denies NVD, unexpected weight loss, fever, chills, or changes in bowel habits. ROS Review of Systems Systems Reviewed: All systems reviewed, normal except as documented Constitutional Constitutional: Reports system reviewed and no additional complaints, except as documented Objective/Exam General Limitations: no limitations General Appearance: alert, in no apparent distress, cooperative and well groomed Resp Respiratory exam: Absent respiratory distress Rectal Rectal exam: Present other (Left perianal fistula external opening approx 3cm from and anterior to anal verge) Skin Skin exam: Present warm, dry, intact and normal color Assessment & Plan Diagnosis / Problem List (1) Anal fistula: Status: Acute Assessment & Plan: 49M who first presented with an infected sentinel pile now with signs and symptoms of a perianal fistula. I explained that surgical treatment will be done in two stages, first with seton placement to allow for continuous drainage and fistula healing followed by either fistulectomy or LIFT when drainage noticeably decreases. All questions were answered and pt is agreeable to proceeding Office Procedures GNS Level of Care Nursing/Assessment Patient Status: Established Patient Nursing Assessment/Reassesment: Medication Reconciliation, Update PMH in EMR and Vital Signs Coordination of Care: Complex Care and Chronic Disease 1-5, Education Complex Pt/Fam, Consent,records obtained, informed consent, Results/Orders obtained and Staff clarify orders Established Patient Charge Established Patient Point Assignment: 95 Established Patient Point Charge: Level 3 (80-115) Patient Portal Questionaires Social History Living Situation History Housing: House Tobacco History Smoking Status: Never smoker Alcohol History Alcohol Intake: Never Domestic Abuse History Do You Feel Safe at Home: Yes Review of Systems Report any current symptoms Only answer those that you have currently: Past Medical History Past Medical History Have you ever been diagnosed with any of the following: Neurological Problems Seizures: No Cardiology Problems Hypercholesterolemia: Yes Congestive Heart Failure: No Respiratory Problems Chronic Obstructive Pulmonary Disease (COPD): No Stomache/Intestinal Problems Gall Bladder Disease: Yes (gallstones) Genital/Urinary Problems Renal Disease: No Reproductive Problems Fibroids: No Endocrine Problems Diabetes Mellitus Type 1: No Diabetes Mellitus Type 2: No Other Problems Hospitalization: No Autoimmune Disease: No Falls: No Blood Transfusions: No Anesthesia Reactions: No MRSA: No Chicken Pox: No Measles: No Mumps: No Cancer: No
== END 2025-04-06 13:48 | disposition home or self-care (01) ==
LOC: HODSRG 13:02
PROVIDERS: PCP Specialist; Referring Provider Specialist; Supervising Provider Surgery; Visit Provider Surgery
DX: K60.30 Anal fistula, unspecified (principal)
CPT/HCPCS: 99213; G0463

== ENCOUNTER 2025-04-25 07:00 | Day surgery (SDC) | payer BC, SELFPAY ==
[2025-04-24 07:26] VITALS: BMI 30.8
[2025-04-24 08:17] LABS: Basophils # (Auto) 0.1 Thou/mm3 (0.0-0.2); Basophils % (Auto) 1 % (0-2.5); Eosinophils # (Auto) 0.4 Thou/mm3 (0.0-0.5); Eosinophils % (Auto) 6 % (0-10); Hematocrit 48.2 % (41.0-53.0); Hemoglobin 16.0 g/dL (13.5-16.0); Immature Granulocytes Auto 0.02 Thou/mm3 (0.00-0.00); Lymphocytes # (Auto) 2.0 Thou/mm3 (1.0-4.8); Lymphocytes % (Auto) 32 % (10-50); Mean Corpuscular HGB Conc 33.2 g/dl (31.0-37.0); Mean Corpuscular Hemoglobin 29.5 pg (25.0-35.0); Mean Corpuscular Volume 89 fL (80-100); Monocytes # (Auto) 0.5 Thou/mm3 (0.0-0.8); Monocytes % (Auto) 9 % (0-12); Neutrophils # (Auto) 3.2 Thou/mm3 (1.8-7.7); Neutrophils % (Auto) 52 % (37-80); Nucleated Red Blood Cell # 0.00 Thou/mm3 (0.00-0.00); Nucleated Red Blood Cell % 0 /100 WBC (0); Platelet Count 321 Thou/mm3 (140-440); RDW Standard Deviation 41.1 fL (35.1-43.9); Red Blood Count 5.42 Miln/mm3 (4.50-5.90); White Blood Count 6.2 Thou/mm3 (3.8-10.6)
[2025-04-24 08:24] LABS: Anion Gap 9 (7-16); BUN/Creatinine Ratio 12 Ratio (12-20); Blood Urea Nitrogen 13 mg/dL (9-23); Calcium 10.4 mg/dL (8.3-10.6); Carbon Dioxide 30.1 mMol/L (20.0-31.0); Chloride 103 mMol/L (98-107); Creatinine (Component) 1.1 mg/dL (0.6-1.3); Estimated Creatinine Clearance 76.5 mL/min (>60); Glucose 105 mg/dL (74-106); Osmolality,Calculated 283 (275-295); Potassium 4.0 mMol/L (3.4-5.1); Sodium 142 mMol/L (136-145); eGFR > 60 See Note
[2025-04-24 09:25] LABS: INR 0.9 (0.9-1.3); Partial Thromboplastin Time 28.8 Seconds (22.0-36.0); Prothrombin Time 9.8 Seconds (9.0-12.2)
[2025-04-25] VITALS (8 sets, daily range): BP systolic 129–139; BP diastolic 80–99; PULSE 74–82; RESP 12–19; TEMP 36.4–36.8; O2SAT 98–100; BMI 29.8
--- NOTE | 2025-04-25 07:23 | CHAP ---
Prayed with patient before procedure.
--- NOTE | 2025-04-25 09:37 | PD.SUROPNT ---
Date of Procedure 04/25/25 Pre Op Diagnosis Perianal fistula Post Op Diagnosis Same Procedure Examination under anesthesia, placement of seton Findings Left perianal fistula approx 3cm from anal verge Procedure Description After discussion of risks and benefits, pt was brought to OR, SCDs were placed and general anesthesia was induced. He was placed in lithotomy position with proper padding and was prepped and draped in the usual sterile fashion. After timeout a MORGAN was performed which was normal. A lubricated zelaya retracctor was placed into the anal canal. A fistula probe was placed through the external opening of the fistula which was visualized at the left lateral aspect of the anus, approx 3cm from the verge. The probe easily tracked to the interior opening of the anal canal. A seton (vessel loop) was tied to the part of the fistula probe that was inside the anal canal and the fistula probe was then removed from the tract bringing the seton with it. The seton was tied to itself using three interrupted 0 silk ties. A local and left pudendal nerve block were performed for a total of 20cc of 0.5% marcaine. Pt was returned to supine position and extubated without complication. He was brought to PACU in stable condition Pathology / specimen None Estimated Blood Loss 10 Surgeon Ramona Lechuga MD Surgical Staff Operation Date: 04/25/25 09:00 <No data on this case meets the specified criteria>
--- NOTE | 2025-04-25 09:41 | PD.SURDS ---
Planned Discharge Date 04/25/25 DS: Providers Provider Primary care physician: Cullen Amanda MD Attending Provider on Admission: Ramona Lechuga MD Attending Provider on DC: Ramona Lechuga MD Discharging Provider: Ramona Lechuga MD Diagnosis Discharge Diagnosis (1) Anal fistula: Status: Acute Problem List Completed Was Problem List Reviewed/Reconciled?: Yes Exam Vital Signs Temp Pulse Resp BP Pulse Ox 97.8 F 77 14 133/99 H 98 04/25/25 07:20 04/25/25 07:20 04/25/25 07:20 04/25/25 07:20 04/25/25 07:20 Discharge Plan Plan Patient Disposition: HOME (Self Care) Prescriptions/Referrals Prescriptions/Med Rec: New oxycodone-acetaminophen [Percocet] 5-325 mg tablet 1 tab PO Q6H MDD 4 tabs PRN (Reason: pain) Qty: 30 0RF Rx Instructions: Take 1 tablet as needed every 6 hours for moderate to severe pain No Action allopurinol 100 mg tablet 100 mg PO DAILY Patient Comments: TAKE 1 TABLET BY MOUTH EVERY DAY simvastatin 20 mg tablet 20 mg PO QDAY Referrals: Ramona Lechuga MD [Physician, General Surgery] Cullen Amanda MD [Primary Care Provider, Nephrology] Patient/Caregiver Discharge Instructions Other Discharge Activity Instructions:: You may resume sitz baths as needed for pain, bleeding and swelling starting tomorrow 04/26 Otherwise keep area clean and dry Avoid constipation or diarrhea Take percocet for severe pain, understanding that it can cause constipation If pain is minimal to moderate you can take tylenol or motrin Please be aware percocet contains tylenol (acetaminophen), the max amount of 4000mg (4g) in 24 hours If you develop pain not controlled by medications, fever, or difficulty urinating please seek care in ER For any non-urgent concern please feel free to call the office at [phone] (M-F 8-4pm except 12-1pm) Education Materials: ED Anal Fistula Print Language: Ukrainian Stand Alone Forms: Jessica Award Info., Patient Portal Info Letter Discharge Order Discharge Orders: Discharge (Routine); Ordered 04/25/25 Ordered By: Ramona Lechuga Results Results: Laboratory Laboratory results: results reviewed PROCEDURES: Procedure Date 04/25/25 Procedures Examination under anesthesia, placement of seton
--- NOTE | 2025-04-25 09:42 | SUR.PHASEI ---
0942: Pt. arrived with oral airway in place, vitals stable, breathing unlabored, no signs of distress, ABD pad to rectum has scant amount of drainage, report received from Dara WLAL and MD Delgado.
--- NOTE | 2025-04-25 10:45 | SUR.PHASEII ---
1045: Pt. AAOx4, vitals stable, breathing unlabored, no complaint of pain or nausea, ABD pad in place with same amount of drainage as arrival to PACU, pt. tolerated sips of water well, pt. ambulated to wheelchair with steady gait and no assist, no complications. Gave discharge instructions to the pt. and his ride, both verbalized understanding and had no further questions. Pt. left with all personal belongings.
== END 2025-04-25 10:45 | disposition home or self-care (01) ==
PROVIDERS: PCP Internal Medicine; Referring Provider Surgery; Visit Provider Surgery
PROC: (CPT 46020; principal; 2025-04-25 08:45)
DX: K60.30 Anal fistula, unspecified (principal)
CPT/HCPCS: 46020; 36415; 80048; 85025; 85610; 85730; A4649; J0330; J1100; J2704; J2765; J3010; J3490; A9270

== ENCOUNTER 2025-05-21 11:11 | Outpatient (AMB) | payer BC, SELFPAY ==
[2025-05-21 11:21] VITALS: BP 143/94; PULSE 89; RESP 18; TEMP 36.6; O2SAT 97; BMI 29.9
--- NOTE | 2025-05-21 11:21 | GSCOFFNT_ITS ---
Vital Signs - [facility] 05/21/25 11:21 Height 1.63 m Height Method Measured Weight 79.605 kg Weight Measurement Method Standing Scale BMI 29.9 BP 143/94 H Blood Pressure Source Automatic Cuff Blood Pressure Location Left Upper Arm Position Sitting Respiration 18 Pulse 89 Pulse Source Monitor Temp 97.8 F Temp Source Temporal Artery Scan Pulse Oximetry (%) 97 Oxygen Delivery Method Room Air Med/Allergies Allergies & Medications Allergies No Known Allergies Allergy (Verified 05/21/25 11:22) Medication Reconciliation allopurinol 100 mg tablet 100 mg PO DAILY 04/24/25 [History Confirmed 05/21/25] simvastatin 20 mg tablet 20 mg PO QDAY 04/24/25 [History Confirmed 05/21/25] oxycodone-acetaminophen 5 mg-325 mg tablet (Percocet) 1 tab PO Q6H PRN pain #30 tabs 04/25/25 [Rx Confirmed 05/21/25] MA Intake Visit Data Collection New Patient or Established: Established Patient (seen at [facility] within 3 years) Seen by Clinical Staff ONLY (RN/MA): No Reason for Visit:: POST OP EUA & SETON PLACEMENT Pain Present Currently: No Pain Scale Used: Crane-Roman/Numerical Validation Scientist Required: No PCP or OBGYN visit in last 3 months: Yes Hx Now: No Do You Feel Safe at Home: Yes Authorities Contacted: N/A Smoking Status Smoking Status: Never smoker Immunization / Flu Flu Vaccine in the Last 12 Months: No Flu Vaccine Exclusion Criteria: Refused by Patient Past Medical History Past Medical History NEUROLOGIC: Negative Neurological Disorders or Seizures CARDIAC: Positive Cardiac Disorders and Hypercholesterolemia; Negative Congestive Heart Failure RESPIRATORY: Negative Chronic Obstructive Pulmonary Disease (COPD) GASTROINTESTINAL: Negative Gastrointestinal Disorders or Gall Bladder Disease GENITOURINARY: Negative Genitourinary Disorders or Renal Disease REPRODUCTIVE: Negative Fibroids MUSCULOSKELETAL: Positive Gout (high uric acid) ENDOCRINE: Negative Endocrine Disorders, Diabetes Mellitus Type 1 or Diabetes Mellitus Type 2 HEMATOLOGIC: Negative Blood Disorders OTHER HISTORY: Negative Hospitalization, Autoimmune Disease, Falls, Blood Transfusions, Blood Transfusion Reaction (n/a), Anesthesia Reactions, MRSA, Chicken Pox, Measles, Mumps, Cancer or Cervical Cancer Family History FAMILY HISTORY: Positive Family Surgery; Negative Family Psychiatric Problems, Family Respiratory Disorders, Family Cardiac Disorders, Family Gastrointestinal Problems, Family Cancer or Family Anesthesia Reaction Surgical History SURGICAL: Positive Abdominal Surgery Social History SMOKING STATUS: Smoking status: Never smoker ALCOHOL: Alcohol Intake: Never HOUSING: Housing: House HPI HPI Narrative 49M who first presented with an infected sentinel pile, later developing a perianal fistula s/p EUA with seton placement 04/25/25 here for planned follow up. Pt reports feeling well overall with no pain; he says he took ibuprofen the first few days after surgery but did not take any of the percocet. His BMs remain soft without any straining, sometimes loose related to laxatives. He is having stable yellow drainage from the fistula ROS Review of Systems Systems Reviewed: All systems reviewed, normal except as documented Objective/Exam General General Appearance: alert, cooperative and well groomed Resp Respiratory exam: Absent respiratory distress Assessment & Plan Diagnosis / Problem List (1) Anal fistula: Status: Acute Assessment & Plan: 49M who first presented with an infected sentinel pile, later developing a perianal fistula s/p EUA with seton placement 04/25/25, recovering well with ongoing drainage. Pt understands that definitive surgery will be undertaken when he has noticeably less drainage which could take weeks to months Plan: F/u in 6 weeks Office Procedures GNS Level of Care Nursing/Assessment Patient Status: Established Patient Nursing Assessment/Reassesment: Medication Reconciliation, Update PMH in EMR and Vital Signs Coordination of Care: Complex Care and Chronic Disease 1-5, Education Complex Pt/Fam, Consent,records obtained, informed consent, Results/Orders obtained and Staff clarify orders Established Patient Charge Established Patient Point Assignment: 95 Established Patient Point Charge: EP Level 3 (80-115) Patient Portal Questionaires Social History Living Situation History Housing: House Tobacco History Smoking Status: Never smoker Alcohol History Alcohol Intake: Never Domestic Abuse History Do You Feel Safe at Home: Yes Review of Systems Report any current symptoms Only answer those that you have currently: Past Medical History Past Medical History Have you ever been diagnosed with any of the following: Neurological Problems Seizures: No Cardiology Problems Hypercholesterolemia: Yes Congestive Heart Failure: No Respiratory Problems Chronic Obstructive Pulmonary Disease (COPD): No Stomache/Intestinal Problems Gall Bladder Disease: No Genital/Urinary Problems Renal Disease: No Reproductive Problems Fibroids: No Musculoskeletal Problems Gout: Yes (high uric acid) Endocrine Problems Diabetes Mellitus Type 1: No Diabetes Mellitus Type 2: No Other Problems Hospitalization: No Autoimmune Disease: No Falls: No Blood Transfusions: No Blood Transfusion Reaction: No (n/a) Anesthesia Reactions: No MRSA: No Chicken Pox: No Measles: No Mumps: No Cancer: No
== END 2025-05-21 11:45 | disposition home or self-care (01) ==
LOC: HODSRG 11:11
PROVIDERS: PCP Specialist; Referring Provider Specialist; Supervising Provider Surgery; Visit Provider Surgery
DX: Z48.89 Encounter for other specified surgical aftercare (principal); K60.30 Anal fistula, unspecified
CPT/HCPCS: 99213; G0463